=== PATIENT | female | born 1965 | race Caucasian/White ===

== ENCOUNTER 2020-04-08 13:41 | Emergency (ER) | payer BC ==
[~2020-04-08] VITALS: Ht 162.6 cm; Wt 67.1 kg
[2020-04-08 14:49] LABS: BASOPHILS % (AUTO) 0.4 % (0-1); EOSINOPHILS % (AUTO) 0.3 % (0-6); HEMATOCRIT 41.9 % (35.0-45.0); LYMPHOCYTES # (AUTO) 1.2 X10'3 (1.1-4.8); LYMPHOCYTES % (AUTO) 18.6 % (21-51); MEAN CORPUSCULAR HEMOGLOBIN 28.9 PG (27.0-31.0); MEAN CORPUSCULAR HGB CONC 33.4 g/dL (33.0-36.5); MEAN CORPUSCULAR VOLUME 86.5 FL (78-98); MEAN PLATELET VOLUME 8.9 FL (7.4-10.4); MONOCYTES # (AUTO) 0.4 X10'3 (0-0.9); MONOCYTES % (AUTO) 5.6 % (2-12); NEUTROPHILS # (AUTO) 4.9 X10'3 (1.8-7.7); NEUTROPHILS % (AUTO) 75.1 % (42-75); PLATELET COUNT 230 X10'3 (140-440); RED BLOOD COUNT 4.84 X10'6 (4.20-5.60); WHITE BLOOD COUNT 6.6 X10'3 (4.5-11.0)
[2020-04-08] MEDS ORDERED: pantoprazole 40 MG vial IV ONE (14:55)
[2020-04-08 15:37] LABS: ALANINE AMINOTRANSFERASE 19 U/L (12-78); ALBUMIN 4.3 G/DL (3.4-5.0); ALKALINE PHOSPHATASE 99 IU/L (46-116); ANION GAP 12 (8-16); ASPARTATE AMINO TRANSFERASE 25 U/L (10-37); BILIRUBIN,TOTAL 0.4 MG/DL (0.1-1.0); BLOOD UREA NITROGEN 16 MG/DL (7-18); BUN/CREATININE RATIO 19.3 (6.6-38.0); CALCIUM 9.3 MG/DL (8.5-10.1); CHLORIDE 106 MMOL/L (99-107); CREATININE 0.83 MG/DL (0.40-0.90); GLUCOSE 101 MG/DL (70-104); POTASSIUM 3.7 MMOL/L (3.5-5.1); SODIUM 144 MMOL/L (135-145); TOTAL CARBON DIOXIDE 26.1 MMOL/L (24-32); TOTAL PROTEIN 8.8 G/DL (6.4-8.2); eGFR 71 ML/MIN
[2020-04-08] MEDS ORDERED: PANT-47 PO (16:00)
[2020-04-08 16:20] VITALS: BP 126/64
[2020-04-08] MEDS ORDERED: pantoprazole 40mg Tablet.DR PO ONE (16:20)
[2020-04-09] MEDS ORDERED: pantoprazole 40mg Tablet.DR PO SCH (07:30)
== END 2020-04-08 16:23 | disposition home or self-care (01) ==
LOC: ER 13:42
DX: R07.89 Other chest pain (principal); K30 Functional dyspepsia; Z79.899 Other long term (current) drug therapy
CPT/HCPCS: 36415; 71045; 80053; 83880; 84484; 85025; 93005; 99285